=== PATIENT | female | born 1940 | race American Indian/Alaskan Native ===

== ENCOUNTER 2017-06-01 11:32 | Emergency (ER) | payer MEDICARE ==
[2017-06-01 11:52] VITALS: BP 115/41
[2017-06-01 12:04] LABS: Basophils % (Auto) 0.6 % (0.0-1.8); Eosinophils % (Auto) 2.4 % (0.0-4.3); Hematocrit 44.3 % (30.3-42.9); Hemoglobin 14.2 gm/dl (10.1-14.3); Mean Corpuscular HGB Conc 32 % (30-34); Mean Corpuscular Hemoglobin 27 pg (28-32); Mean Corpuscular Volume 85 fl (79-97); Platelet Count 294 K/mm3 (140-440); White Blood Count 10.2 K/mm3 (4.5-11.0)
[2017-06-01 12:23] LABS: Anion Gap 18 mmol/L; BUN/Creatinine Ratio 20; Blood Urea Nitrogen 20 mg/dL (7-17); Calcium 9.3 mg/dL (8.4-10.2); Carbon Dioxide 29 mmol/L (22-30); Chloride 100.5 mmol/L (98-107); Glucose 90 mg/dL (65-100); Potassium 4.2 mmol/L (3.6-5.0); Sodium 143 mmol/L (137-145)
--- NOTE | 2017-06-01 13:35 | XRay Report ---
CHEST TWO VIEWS: 06/01/17 11:32:00 CLINICAL: Shortness of breath. COMPARISON: 01/17/11 FINDINGS: Mild cardiomegaly with pacer leads in heart. Aortic tortuosity. Mild central vascular congestion. The lungs are normally expanded and clear. The bones and soft tissues are normal. IMPRESSION: Mild cardiomegaly and pulmonary venous hypertension.No pulmonary edema.
== END 2017-06-01 17:24 | disposition left against medical advice (07) ==
LOC: ED 11:32
DX: R07.9 Chest pain, unspecified (principal); Z53.21 Procedure and treatment not carried out due to patient leaving prior to being seen by health care provider
CPT/HCPCS: 36415; 71020; 80048; 83880; 84484; 85025; 93005; 93010

== ENCOUNTER 2018-03-28 14:45 | Emergency (ER) | payer OTHER, MEDICARE ==
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
[2018-03-28] MEDS ORDERED: NORCO 5/325 PO ONE (18:11)
[2018-03-28] MEDS ORDERED: VALIUM PO ONE (18:11)
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
[2018-03-28 22:10] VITALS: BP 158/81
== END 2018-03-28 21:40 | disposition home or self-care (01) ==
LOC: ED 14:45
DX: S22.41XA Multiple fractures of ribs, right side, initial encounter for closed fracture (principal); S82.891A Other fracture of right lower leg, initial encounter for closed fracture; V49.49XA Driver injured in collision with other motor vehicles in traffic accident, initial encounter; Y93.89 Activity, other specified; Y92.89 Other specified places as the place of occurrence of the external cause; Y99.8 Other external cause status
CPT/HCPCS: 93005; 93010

== ENCOUNTER 2018-04-03 12:19 | Emergency (ER) | payer OTHER, MEDICARE ==
[2018-04-03 13:12] VITALS: BP 170/67
[2018-04-03] MEDS ORDERED: ASPIRIN PO ONE (13:37)
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
--- NOTE | 2018-04-03 14:17 | XRay Report ---
ROUTINE CHEST, TWO VIEWS: HISTORY: chest pain. Mild cardiomegaly and pulmonary venous congestion and 2-lead pacemaker device are unchanged since 03/28/18. The lungs are clear. No evidence for pneumonia, pleural fluid or pneumothorax. The bony structures are demineralized with degenerative changes. IMPRESSION: Mild cardiomegaly and pulmonary venous congestion.
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
[2018-04-03 14:57] LABS: Basophils # (Auto) 0.1 K/mm3 (0.0-0.1); Basophils % (Auto) 0.7 % (0.0-1.8); Eosinophils # (Auto) 0.1 K/mm3 (0.0-0.4); Eosinophils % (Auto) 1.5 % (0.0-4.3); Hematocrit 37.1 % (30.3-42.9); Hemoglobin 12.7 gm/dl (10.1-14.3); Lymphocytes # (Auto) 2.6 K/mm3 (1.2-5.4); Lymphocytes % (Auto) 29.1 % (13.4-35.0); Mean Corpuscular HGB Conc 34 % (30-34); Mean Corpuscular Hemoglobin 28 pg (28-32); Mean Corpuscular Volume 83 fl (79-97); Monocytes # (Auto) 0.8 K/mm3 (0.0-0.8); Monocytes % (Auto) 9.1 % (0.0-7.3); Platelet Count 271 K/mm3 (140-440); Red Blood Count 4.48 M/mm3 (3.65-5.03); Red Cell Distribution Width 15.7 % (13.2-15.2)
[2018-04-03 15:11] LABS: BUN/Creatinine Ratio 21; Blood Urea Nitrogen 19 mg/dL (7-17); Calcium 8.8 mg/dL (8.4-10.2); Hemolysis Index 9
[2018-04-03 15:14] LABS: INR 0.95 (0.87-1.13); Partial Thromboplastin Time 32.3 Sec. (24.2-36.6)
[2018-04-03] MEDS ORDERED: SOLU-Medrol IV ONE (15:44)
[2018-04-03] MEDS ORDERED: BENADRYL IV ONE (15:44)
--- NOTE | 2018-04-03 18:14 | Cat Scan Report ---
FINAL REPORT EXAM: CT ANGIO CHEST HISTORY: RT CHEST PAIN WITH ELEVATED D-DIMER TECHNIQUE: Spiral CTA of the chest after the uneventful administration of IV contrast. Multiplanar reformations. PRIORS: None. FINDINGS: Chest: The main and bilateral proximal pulmonary arteries are normally opacified without endoluminal filling defects. Left subclavian transvenous cardiac device and mild cardiomegaly. No apparent aneurysm, pseudoaneurysm or aortic dissection. No significant lymph node enlargement or axillary adenopathy. Very small hiatal hernia. Lungs show probable bibasilar atelectasis versus scarring. No discrete parenchymal mass, focal consolidation or pleural effusions. No apparent pneumothorax. Visualized upper abdomen grossly unremarkable. Degenerative change in the thoracic spine. IMPRESSION: 1. No evidence of large vessel or central pulmonary emboli. No acute consolidation.
== END 2018-04-03 18:54 | disposition home or self-care (01) ==
LOC: ED 12:19
DX: S22.31XA Fracture of one rib, right side, initial encounter for closed fracture (principal); S82.54XA Nondisplaced fracture of medial malleolus of right tibia, initial encounter for closed fracture; I10 Essential (primary) hypertension; E05.90 Thyrotoxicosis, unspecified without thyrotoxic crisis or storm; Z95.0 Presence of cardiac pacemaker; Z90.710 Acquired absence of both cervix and uterus; V49.69XA Unspecified car occupant injured in collision with other motor vehicles in traffic accident, initial encounter; Y93.89 Activity, other specified; Y92.89 Other specified places as the place of occurrence of the external cause; Y99.8 Other external cause status
CPT/HCPCS: 36415; 71046; 71275; 80048; 84484; 85025; 85379; 85610; 85730; 93005; 93010; 96374; 96375; 99285; J1200; J2930; Q9967

== ENCOUNTER 2018-04-18 09:18 | Outpatient (CLI) | payer MEDICARE | END 2018-04-18 09:19 | disposition home or self-care (01) | LOC: VAS 09:18 | PROVIDERS: ATTEND Internal Medicine Cardiovascular Disease | DX: R22.41 Localized swelling, mass and lump, right lower limb (principal); I10 Essential (primary) hypertension; Z90.49 Acquired absence of other specified parts of digestive tract ==

== ENCOUNTER 2020-07-16 09:41 | Emergency (ER) | payer OTHER, MEDICARE ==
[2020-07-16 10:00] VITALS: BP 170/73
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
--- NOTE | 2020-07-16 12:13 | XRay Report ---
RIGHT KNEE 3 VIEW(S) INDICATION / CLINICAL INFORMATION: KNEE INJURY COMPARISON: None available. FINDINGS: BONES / JOINT(S): No acute fracture or subluxation. Moderate degenerative arthrosis medial femoral ti bial compartment and mild degenerative arthrosis patellofemoral and lateral femoral tibial compartmen ts. SOFT TISSUES: No significant abnormality. ADDITIONAL FINDINGS: None. Signer Name: Enzo Carter MD Signed: 07/16/2020 12:08 PM Workstation Name: [id number]
== END 2020-07-16 13:14 | disposition home or self-care (01) ==
LOC: ED 09:41
DX: S80.01XA Contusion of right knee, initial encounter (principal); I10 Essential (primary) hypertension; Z90.49 Acquired absence of other specified parts of digestive tract; Z90.710 Acquired absence of both cervix and uterus; Z98.890 Other specified postprocedural states; Z79.899 Other long term (current) drug therapy; V49.59XA Passenger injured in collision with other motor vehicles in traffic accident, initial encounter; W22.10XA Striking against or struck by unspecified automobile airbag, initial encounter; Y93.89 Activity, other specified; Y92.410 Unspecified street and highway as the place of occurrence of the external cause; Y99.8 Other external cause status

== ENCOUNTER 2021-09-26 09:41 | Outpatient (CLI) | payer MEDICARE ==
--- NOTE | 2021-09-26 11:26 | XRay Report ---
CERVICAL SPINE 4 VIEWS INDICATION: LEFT SHOULDER PAIN. COMPARISON: None. IMPRESSION: Normal alignment. 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 C5 -6 and C6-7 are the most affected levels. No acute osseous or soft tissue abnormality. LEFT SHOULDER 3 VIEWS INDICATION: LEFT SHOULDER PAIN. COMPARISON: None. IMPRESSION: No acute osseous or soft tissue abnormality. Mild osteoarthritic changes are identifi ed. Signer Name: Maik Wolfe Jr, MD Signed: 09/26/2021 11:22 AM Workstation Name: [id number]
== END 2021-09-26 09:42 | disposition home or self-care (01) ==
LOC: XRAY 09:41
PROVIDERS: ATTEND Internal Medicine
DX: M19.012 Primary osteoarthritis, left shoulder (principal); M50.123 Cervical disc disorder at C6-C7 level with radiculopathy; M50.122 Cervical disc disorder at C5-C6 level with radiculopathy
CPT/HCPCS: 72040